=== PATIENT | female | born 1970 | race Caucasian/White ===

== ENCOUNTER 2019-01-24 08:39 | Emergency (ER) | payer OTHER ==
--- NOTE | 2019-01-24 09:36 | EDM.PDOC ---
ED HPI GENERAL MEDICAL PROBLEM - General Chief Complaint: Upper Extremity Injury/Pain Stated Complaint: LT WRIST INJURY Time Seen by Provider: 01/24/19 08:49 - History of Present Illness INITIAL COMMENTS - FREE TEXT/NARRATIVE: Patient is a 48 field female who presents with complaints of pain and swelling to her left wrist. She states that she fell about an hour prior to arrival and caught herself with her left hand. She denies any history of previous injuries to this extremity. Left Wrist Pain Score (Numeric/FACES): 6 - Related Data Allergies Allergy/AdvReac Type Severity Reaction Status Date / Time Sulfa (Sulfonamide Allergy Rash Verified 01/24/19 08:45 Antibiotics) Home Meds: Home Meds B12/Levomefolate Calcium/B-6 [Foltx Tablet] 1 tab PO DAILY 01/24/19 [History] Pantoprazole Sodium [Protonix] 4 mg PO DAILY 01/24/19 [History] Thyroid,Pork [[place] Thyroid] 9 mg PO DAILY 01/24/19 [History] Vitamin D3/Vitamin K2 (Mk4) [K2 Plus D3 Tablet] 1 tab PO DAILY 01/24/19 [History ] Past Medical History HEENT History: Reports: Impaired Vision Genitourinary History: Reports: Renal Calculus Endocrine/Metabolic History: Reports: Hypothyroidism - Past Surgical History HEENT Surgical History: Reports: LASIK, Tonsillectomy, Other (See Below) Other HEENT Surgeries/Procedures: Winsdom teeth extraction GI Surgical History: Reports: Bariatric Procedure Other GI Surgeries/Procedures: Gastric sleeve 2017 Female Surgical History: Reports: Hysterectomy, Lithotripsy/ESWL Social & Family History - Tobacco Use Smoking Status *Q: Never Smoker - Caffeine Use Caffeine Use: Reports: Energy Drinks - Recreational Drug Use Recreational Drug Use: No Review of Systems - Review of Systems Review Of Systems: See Below Constitutional: Reports: No Symptoms Eyes: Reports: No Symptoms Ears: Reports: No Symptoms Nose: Reports: No Symptoms Mouth/Throat: Reports: No Symptoms Respiratory: Reports: No Symptoms Cardiovascular: Reports: No Symptoms GI/Abdominal: Reports: No Symptoms Genitourinary: Reports: No Symptoms Musculoskeletal: Reports: Joint Pain (left wrist), Joint Swelling (left wrist) Skin: Reports: No Symptoms Neurological: Reports: No Symptoms. Denies: Dizziness, Headache, Syncope Psychiatric: Reports: No Symptoms ED EXAM, GENERAL - Physical Exam Exam: See Below Exam Limited By: No Limitations General Appearance: Alert, WD/WN, No Apparent Distress Head: Atraumatic, Normocephalic Respiratory/Chest: No Respiratory Distress, Lungs Clear, Normal Breath Sounds, No Accessory Muscle Use, Chest Non-Tender Cardiovascular: Normal Peripheral Pulses, Regular Rate, Rhythm, No Murmur Extremities: Joint Swelling (left wrist), Limited Range of Motion (left wrist) Neurological: Alert, Oriented, Normal Cognition Psychiatric: Normal Affect, Normal Mood Skin Exam: Warm, Dry, Intact, Normal Color, No Rash ED TRAUMA EXTREMITY PROCEDURES - Splinting Left Upper Extremity Splint Site: left wrist Pre-Procedure NV Status: Normal Post-Procedure NV Status: Normal Splint Material: Fiberglass Splint Design: Volar Applied & Form Fitted By: Provider Provider Post-Splint Application NV Check: NV Status Normal, Good Position Complications: No Course - Vital Signs Last Recorded V/S: Last Vital Signs Temp 98.4 F 01/24/19 08:47 Pulse 60 01/24/19 08:47 Resp 20 01/24/19 08:47 BP 136/92 H 01/24/19 08:47 Pulse Ox 99 01/24/19 08:47 - Orders/Labs/Meds Orders: Active Orders 24 hr Category Date Time Status Wrist Comp Min 3V Lt [CR] Stat Exams 01/24/19 08:54 Taken - Radiology Interpretation Free Text/Narrative:: x-ray of the left wrist does show a non-displaced fracture of the distal radius. A volar splint was applied. Patient was educated to ice through the splint and use Tylenol as needed for pain. patient is schedule follow-up appointment with orthopedics. She states that she does already have an appointment with Dr. Morelos for tomorrow. She will call to see if he would like her to reschedule for later in the week or early next week for cast placement. Departure - Departure Time of Disposition: 09:33 Disposition: Home, Self-Care 01 Condition: Good Clinical Impression: Fracture of radius Qualifiers: Encounter type: initial encounter Radius location: distal Fracture type: closed Fracture morphology: unspecified fracture morphology Laterality: left Qualified Code(s): S52.502A - Unspecified fracture of the lower end of left radius, initial encounter for closed fracture - Discharge Information *PRESCRIPTION DRUG MONITORING PROGRAM REVIEWED*: No *COPY OF PRESCRIPTION DRUG MONITORING REPORT IN PATIENT DIANA: No Instructions: Radial Fracture Referrals: Constanza Nuno MD [Primary Care Provider] - Inocente Morelos MD [Physician] - Forms: ED Department Discharge Additional Instructions: You were seen in the emergency Department today with pain and swelling to her left wrist. X-ray does show that there is a fracture of the distal radius. A splint was applied to her left wrist. This should remain intact until removed by orthopedics. You may ice through the splint. We also recommend that she elevate the extremity as much as possible. You may use Tylenol as needed for pain. Call and schedule an appointment with Dr. Morelos for approximately 1 week from today. If you should experience any new or worsening symptoms, please don't hesitate to return to the emergency department. - My Orders Last 24 Hours: My Active Orders 01/24/19 08:54 Wrist Comp Min 3V Lt [CR] Stat - Assessment/Plan Last 24 Hours: My Active Orders 01/24/19 08:54 Wrist Comp Min 3V Lt [CR] Stat
--- NOTE | 2019-01-24 10:53 | CR ---
Left wrist: Four views of the left wrist were obtained. Comparison: No prior wrist exam. Fracture is identified within the distal radius. Fracture shows transverse fracture lines as well as vertical fracture lines into the articular margin. No displacement is seen. No additional fracture or other bony abnormality is seen. Impression: 1. Nondisplaced radial fracture as noted above. Diagnostic code #3 This report was dictated in [place] Standard Time
== END 2019-01-24 09:50 | disposition home or self-care (01) ==
LOC: JD.ED 08:39
DX: S52.502A Unspecified fracture of the lower end of left radius, initial encounter for closed fracture (principal); E03.9 Hypothyroidism, unspecified; Z88.2 Allergy status to sulfonamides; W19.XXXA Unspecified fall, initial encounter
CPT/HCPCS: 29125; 73110-26-LT; 73110-LT; 99282; 99283-25

== ENCOUNTER 2019-07-20 15:52 | Emergency (ER) | payer OTHER ==
[2019-07-20] MEDS ORDERED: Dextrose 5%-0.9% NaCl 1,000 ML IV SCH (16:30)
[2019-07-20] MEDS ORDERED: HYDROmorphone 0.5 MG/0.5 ML Syringe IVPUSH ONE (16:32)
[2019-07-20] MEDS ORDERED: Metoclopramide 10 MG/2 ML SDV IVPUSH ONE (16:33)
--- NOTE | 2019-07-20 16:38 | EDM.PDOC ---
ED HPI GENERAL MEDICAL PROBLEM - General Chief Complaint: Abdominal Pain Stated Complaint: ABDOMINAL SURGERY Time Seen by Provider: 07/20/19 16:20 Source of Information: Reports: Patient History Limitations: Reports: No Limitations - History of Present Illness INITIAL COMMENTS - FREE TEXT/NARRATIVE: 49-year-old female resents to the ED with acute onset of severe epigastric right upper quadrant abdominal pain that radiates along the right costal margin to her right back infrascapular area. Associated nausea without vomiting. She has a complicated history of upper GI problems with chronic severe reflux disease requiring gastric surgery in April of this year. She had had previous lap band surgery and gastric sleeve procedures for weight loss in the past. Therefore she could not have a fundoplication. Did have some form of repair of the hiatal hernia. She actually had a gastric bypass on this occasion. She has had complications with the anastomosis between the small bowel or duodenum and the fundus of the stomach. She has had to have this area dilated x3 since the surgery was performed. Last occasion was 1 week ago. Apparently there is significant scar tissue at the and the stenotic site. Is therefore frequent vomiting of partially digested almost undigested food intermittently. She has early satiety and can eat much of the time. She states initially she had some diarrhea stools but for the most part now is formed up and normal. She does not appreciate any hematemesis. She is never had this type of pain associated with her gastric surgery. To her knowledge she has no gallstones. Last meal was approximate 1300 hrs. today. He had a quarter of a grilled cheese sandwich. Onset: Today Onset Date: 07/20/19 Onset Time: 15:15 Duration: Minutes: Location: Reports: Abdomen (For approximately an hour prior to being seen. Epigastric pain rating through straight through to her mid back also along the right costal margin to the infrascapular area typical of biliary colic.) Quality: Reports: Ache, Other (Deep aching pain with colicky component) Severity: Moderate Improves with: Reports: None Worsens with: Reports: None Context: Reports: Other (Continuous occurrence). Denies: Activity, Exercise, Lifting, Sick Contact Associated Symptoms: Reports: Loss of Appetite, Nausea/Vomiting (Nausea without vomiting), Shortness of Breath (Active shortness of breath as if she takes a deep breath the abdominal pain will worsen.) Treatments HEELER MACHINE: Reports: Other (see below) (None.) Abdominal Pain Score (Numeric/FACES): 7 - Related Data Allergies Allergy/AdvReac Type Severity Reaction Status Date / Time Sulfa (Sulfonamide Allergy Rash Verified 07/20/19 16:09 Antibiotics) Home Meds: Home Meds B12/Levomefolate Calcium/B-6 [Foltx Tablet] 1 tab PO DAILY 01/24/19 [History] Pantoprazole Sodium [Protonix] 4 mg PO DAILY 01/24/19 [History] Thyroid,Pork [[place] Thyroid] 9 mg PO DAILY 01/24/19 [History] Vitamin D3/Vitamin K2 (Mk4) [K2 Plus D3 Tablet] 1 tab PO DAILY 01/24/19 [History ] Hyoscyamine Sulfate [Levsin-Sl] 0.125 mg SL ASDIRECTED PRN #8 tab.subl 07/20/19 [Rx] Past Medical History HEENT History: Reports: Impaired Vision Genitourinary History: Reports: Renal Calculus Endocrine/Metabolic History: Reports: Hypothyroidism - Past Surgical History HEENT Surgical History: Reports: LASIK, Tonsillectomy, Other (See Below) Other HEENT Surgeries/Procedures: Winsdom teeth extraction GI Surgical History: Reports: Bariatric Procedure Other GI Surgeries/Procedures: Gastric sleeve 2017 Female Surgical History: Reports: Hysterectomy, Lithotripsy/ESWL Social & Family History - Tobacco Use Smoking Status *Q: Never Smoker - Caffeine Use Caffeine Use: Reports: Energy Drinks - Living Situation & Occupation Living situation: Reports: Occupation: Unemployed ED ROS GENERAL - Review of Systems Review Of Systems: See Below Constitutional: Reports: Decreased Appetite (Has early satiety since gastric bypass procedure was performed. She also is still sorting out by trial and error what foods she can tolerate and what she cannot.), Weight Loss. Denies: Fever, Chills, Malaise, Weakness, Fatigue HEENT: Reports: No Symptoms Respiratory: Reports: Shortness of Breath (Feels somewhat short of breath as deep breathing will make the abdominal pain worse.) Cardiovascular: Denies: Chest Pain, Blood Pressure Problem, Claudication, Dyspnea on Exertion, Edema, Lightheadedness, Orthopnea Endocrine: Reports: Fatigue GI/Abdominal: Reports: Abdominal Pain, Decreased Appetite (Marcia present illness), Nausea, Vomiting (Intermittent vomiting of usually partially digested to undigested foodSince having gastric bypass performed in April of this year) : Reports: No Symptoms Musculoskeletal: Reports: No Symptoms Skin: Reports: No Symptoms Neurological: Reports: No Symptoms Psychiatric: Reports: No Symptoms Hematologic/Lymphatic: Reports: No Symptoms Immunologic: Reports: No Symptoms ED EXAM, GI/ABD - Physical Exam Exam: See Below Exam Limited By: No Limitations General Appearance: Alert, WD/WN, Moderate Distress, Other (Temperature is 37.1 with a heart rate of 87. Respiratory to 16 with O2 sats 100% on room air. BP is 151/97.) Eyes: Bilateral: Normal Appearance (Scleral icterus or blepharal pallor.) Throat/Mouth: Normal Inspection, Normal Lips, Normal Oropharynx Head: Atraumatic, Normocephalic Neck: Normal Inspection, Supple, Non-Tender, Full Range of Motion. No: Lymphadenopathy (L), Lymphadenopathy (R) Respiratory/Chest: No Respiratory Distress, Lungs Clear, Normal Breath Sounds, No Accessory Muscle Use Cardiovascular: Normal Peripheral Pulses, Regular Rate, Rhythm, No Edema, No Gallop, No Murmur, No Rub GI/Abdominal Exam: Soft, No Organomegaly (Positive Alaniz sign), No Mass, Pelvis Stable, Tender (In the epigastrium mild marked tenderness inferior right costal margin with positive Alaniz sign suggesting biliary colic and gallbladder disease.), Abnormal Bowel Sounds (Sounds were fairly quiesced sent throughout the abdomen.), Other Back Exam: Normal Inspection, Full Range of Motion. No: CVA Tenderness (L), CVA Tenderness (R) Extremities: Normal Inspection, Normal Range of Motion, Non-Tender Neurological: Alert, Oriented, CN II-XII Intact, Normal Cognition Psychiatric: Anxious Skin Exam: Warm, Dry, Intact ([place] anxious), Normal Color, No Rash Course - Vital Signs Last Recorded V/S: Last Vital Signs Temp 37.1 C 07/20/19 16:04 Pulse 87 07/20/19 16:04 Resp 17 07/20/19 18:37 BP 132/80 07/20/19 18:37 Pulse Ox 99 07/20/19 18:37 - Orders/Labs/Meds Orders: Active Orders 24 hr Category Date Time Status Dextrose 5%-0.9% NaCl [Dextrose 5%-Normal Saline] 1,000 Med 07/20/19 16:30 Active ml IV ASDIRECTED Ketorolac [Toradol] Med 07/20/19 16:45 Active 30 mg IVPUSH ONETIME Medication Orders Dextrose/Sodium Chloride (Dextrose 5%-Normal Saline) 1,000 mls @ 250 mls/hr IV ASDIRECTED MARYANN Last Admin: 07/20/19 16:54 Dose: 250 mls/hr Ketorolac Tromethamine (Toradol) 30 mg IVPUSH ONETIME MARYANN Last Admin: 07/20/19 17:15 Dose: 30 mg Labs: Laboratory Tests 07/20/19 07/20/19 Range/Units 16:54 16:54 WBC 6.58 (3.98-10.04) K/mm3 RBC 4.79 (3.98-5.22) M/mm3 Hgb 13.3 (11.2-15.7) gm/dl Hct 40.8 (34.1-44.9) % MCV 85.2 (79.4-94.8) fl MCH 27.8 (25.6-32.2) pg MCHC 32.6 (32.2-35.5) g/dl RDW Std Deviation 50.0 H (36.4-46.3) fL Plt Count 231 (182-369) K/mm3 MPV 11.4 (9.4-12.3) fl Neut % (Auto) 53.1 (34.0-71.1) % Lymph % (Auto) 36.0 (19.3-51.7) % [place] % (Auto) 8.1 (4.7-12.5) % Eos % (Auto) 2.1 (0.7-5.8) Baso % (Auto) 0.5 (0.1-1.2) % Neut # (Auto) 3.50 (1.56-6.13) K/mm3 Lymph # (Auto) 2.37 (1.18-3.74) K/mm3 [place] # (Auto) 0.53 H (0.24-0.36) K/mm3 Eos # (Auto) 0.14 (0.04-0.36) K/mm3 Baso # (Auto) 0.03 (0.01-0.08) K/mm3 Sodium 141 (136-145) mEq/L Potassium 3.6 (3.5-5.1) mEq/L Chloride 107 (98-107) mEq/L Carbon Dioxide 26 (21-32) mEq/L Anion Gap 11.6 (5-15) BUN 10 (7-18) mg/dL Creatinine 0.8 (0.55-1.02) mg/dL Est Cr Clr Drug Dosing 87.70 mL/min Estimated GFR (MDRD) > 60 (>60) mL/min BUN/Creatinine Ratio 12.5 L (14-18) Glucose 94 (74-106) mg/dL Calcium 9.1 (8.5-10.1) mg/dL Total Bilirubin 0.4 (0.2-1.0) mg/dL AST 98 H (15-37) U/L ALT 69 H (14-59) U/L Alkaline Phosphatase 140 H (46-116) U/L C-Reactive Protein 0.3 (<1.0) mg/dL Total Protein 7.7 (6.4-8.2) g/dl Albumin 3.8 (3.4-5.0) g/dl Globulin 3.9 gm/dL Albumin/Globulin Ratio 1.0 (1-2) Amylase 38 (25-115) U/L Meds: Medications Generic Name Dose Route Start Last Admin Trade Name Freq PRN Reason Stop Dose Admin Dextrose/Sodium Chloride 1,000 mls @ 250 mls/hr 07/20/19 16:30 07/20/19 16:54 Dextrose 5%-Normal Saline IV 250 mls/hr ASDIRECTED MARYANN Administration Ketorolac Tromethamine 30 mg 07/20/19 16:45 07/20/19 17:15 Toradol IVPUSH 30 mg ONETIME MARYANN Administration Discontinued Medications Generic Name Dose Route Start Last Admin Trade Name Freq PRN Reason Stop Dose Admin Hydromorphone HCl 0.5 mg 07/20/19 16:32 07/20/19 17:14 Dilaudid IVPUSH 07/20/19 16:33 0.5 mg ONETIME ONE Administration Hyoscyamine 0.125 mg 07/20/19 16:40 07/20/19 16:39 Hyomax-Sl SL 07/20/19 16:41 0.125 mg ONETIME ONE Administration Metoclopramide HCl 7.5 mg 07/20/19 16:33 07/20/19 17:10 Reglan IVPUSH 07/20/19 16:34 7.5 mg ONETIME ONE Administration - Radiology Interpretation Free Text/Narrative:: 49-year-old female presents to the ED with acute onset of epigastric right upper quadrant abdominal pain that radiates along the costal margin to the infrascapular area on the right side. Associated nausea without vomiting. Patient has a complicated history of recurrent surgeries on her stomach for weight loss procedures. She has had previous lap band procedure and gastric sleeve performed. More recently she had a gastric bypass performed and repair of hiatal hernia due to severe gastroesophageal reflux disease in April of this year. Since then she has been able to retain only small quantities of food at a time and will often have spontaneous vomiting due to gastroparesis of partially undigested or undigested food. 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 Last dilatation was performed [address] Baugh her surgeon.. Plan clinically she is suffering from gallbladder disease with acute biliary colic. She last ate at 1300 hrs. today therefore she is out of the window for ultrasound at this time. Plan Levsin 0.125 mg now and repeat in 7 to 10 minutes. IV D5 normal saline at 250 mils per hour. Given Dilaudid 0.5 mg IV with Reglan 7.5 mg IV and Toradol 30 mg IV. 1 view of the abdomen. She will have routine labs including an amylase and CMP. Enzymes are unlikely to be elevated as it is only 45 minutes to an hour since she developed the pain. - Re-Assessments/Exams Free Text/Narrative Re-Assessment/Exam: 07/20/19 17:02 reports really good relief of the abdominal pain after the Levsin tablets x2. She was still be given the low dose of Dilaudid for prolonged pain relief as the Levsin will only last for short period of time. 07/20/19 17:25 Hematology is back. White count is normal at 6.58. Auto differential is 53.1%. Hemoglobin is 13.3 with hematocrit of 40.8. Platelet count is normal at 231,000. 07/20/19 17:56 Chemistry reveals a normal sodium at 141 and potassium of 3.6. Chloride is 107 with a bicarb of 26. Anion gap is normal at 11.6. BUN is 10 with a creatinine of 0.8. GFR is greater than 60. Glucose is 94. Calcium is 9.1. Bilirubin is normal at 0.4. Mild elevation of the AST at 98. ALT mildly elevated at 69. Alkaline phosphatase 140. Also slightly elevated. Cannot rule out early biliary tree obstruction at this time. Total protein is 7.7 with albumin fraction of 3.8. Amylase is normal at 38. Departure - Departure Time of Disposition: 17:56 Disposition: Home, Self-Care 01 Condition: Fair Clinical Impression: Biliary colic - Discharge Information *PRESCRIPTION DRUG MONITORING PROGRAM REVIEWED*: Not Applicable *COPY OF PRESCRIPTION DRUG MONITORING REPORT IN PATIENT DIANA: Not Applicable Prescriptions: Hyoscyamine Sulfate [Levsin-Sl] 0.125 mg SL ASDIRECTED PRN #8 tab.subl PRN Reason: Biliary colic Instructions: Biliary Colic, Adult, Abdominal Pain, Adult, [id number], Gallbladder Eating Plan Referrals: Constanza Nuno MD [Primary Care Provider] - Forms: ED Department Discharge Additional Instructions: Evaluation in the emergency room today in regards to acute onset of significant pain in the epigastrium and right upper quadrant of the abdomen. Examination revealed marked tenderness along the undersurface of your right ribs or right costal margin that was made worse by deep breathing. The signs and symptoms are compatible with acute biliary colic or gallbladder attack. This is quite common to develop gallstones after having stomach surgery. Bedside ultrasound today does reveal several small stones in the bottom of the gallbladder. The gallbladder was not really well visualized at this time. You were treated with intravenous pain medicine Dilaudid 0.5 mg with Toradol 30 mg and antinausea medicine Reglan. Levsin 0.125 mg tablets x2 by mouth relieve most of your pain before the intravenous medication was given. You will need an ultrasound as an outpatient and I will put an order into radiology for them to call you tomorrow with a date and time to come in and have this done. This is done without eating after midnight the day of the test. I will send you home with a prescription for Levsin 0.125 mg tablets to have on hand in case she developed similar type pain. Take 1 right away and if still having some discomfort in 5 to 10 minutes take a second tablet. If this fails to relieve your pain or it comes back you will have to return to the emergency room. If the abdominal pain recurs anytime within the next 12 hours you may try the Levsin at home, where if the pain persists please return to the emergency room. Sepsis Event Note - Evaluation Sepsis Screening Result: No Definite Risk - Focused Exam Vital Signs: Vital Signs Temp Pulse Resp BP Pulse Ox 07/20/19 18:37 17 132/80 99 07/20/19 16:04 37.1 C 87 16 151/97 H 100 Date Exam was Performed: 07/20/19 Time Exam was Performed: 19:10 - My Orders Last 24 Hours: My Active Orders 07/20/19 16:30 Dextrose 5%-0.9% NaCl [Dextrose 5%-Normal Saline] 1,000 ml IV ASDIRECTED 07/20/19 16:45 Ketorolac [Toradol] 30 mg IVPUSH ONETIME - Assessment/Plan Last 24 Hours: My Active Orders 07/20/19 16:30 Dextrose 5%-0.9% NaCl [Dextrose 5%-Normal Saline] 1,000 ml IV ASDIRECTED 07/20/19 16:45 Ketorolac [Toradol] 30 mg IVPUSH ONETIME
[2019-07-20] MEDS ORDERED: Hyoscyamine 0.125 MG Tab.SL SL ONE (16:40)
[2019-07-20] MEDS ORDERED: Ketorolac 30 MG/ML SDV IVPUSH SCH (16:45)
--- NOTE | 2019-07-20 17:21 | CR ---
Abdomen: Supine view of the abdomen was obtained. Surgical clips as well as surgical anastomotic sutures are seen within the left upper abdomen. Bowel gas pattern appears within normal limits. Bony structures are unremarkable. No soft tissue abnormality is seen. No abnormal calcifications are appreciated. Impression: 1. Prior abdominal surgery. 2. Nothing acute is seen on supine abdominal x-ray. Diagnostic code #2 This report was dictated in MDT
== END 2019-07-20 18:37 | disposition home or self-care (01) ==
LOC: JD.ED 15:52
DX: K80.50 Calculus of bile duct without cholangitis or cholecystitis without obstruction (principal); R11.2 Nausea with vomiting, unspecified; E03.9 Hypothyroidism, unspecified; Z88.2 Allergy status to sulfonamides; Z79.899 Other long term (current) drug therapy; Z90.710 Acquired absence of both cervix and uterus; Z98.890 Other specified postprocedural states
CPT/HCPCS: 36415; 74018; 80053; 82150; 85025; 86140; 96361; 96374; 96375; 99284; A9270; J1170; J1885; J2765; J7042

== ENCOUNTER 2021-01-28 15:40 | Emergency (ER) | payer OTHER ==
[2021-01-28] MEDS ORDERED: Sodium Chloride 0.9% 1,000 ML IV STA (17:43)
[2021-01-28] MEDS ORDERED: HYDROmorphone 0.5 MG/0.5 ML Syringe IVPUSH ONE (17:43)
[2021-01-28] MEDS ORDERED: Sodium Chloride 0.9% 10 ML Syringe FLUSH PRN (17:43)
[2021-01-28] MEDS ORDERED: Ondansetron 4 MG/2 ML SDV IVPUSH ONE (17:43)
--- NOTE | 2021-01-28 18:47 | US ---
Limited abdominal ultrasound: Multiple real-time images of the upper right abdomen were obtained. Comparison: Prior right upper quadrant abdominal ultrasound of 07/22/19. Findings: Liver is echogenic compatible with fatty infiltration. Slight focal fatty sparing next to the gallbladder is seen. Gallbladder shows no shadowing gallstones. There is either minimal sludge or gallbladder polyps being seen. No gallbladder wall thickening or biliary duct dilatation is seen. Complete pancreas is not seen. Visualized portions of the pancreas showed nothing acute. Inferior vena cava is patent. Main portal vein shows normal hepatopedal flow. Right kidney shows no hydronephrosis or mass. Right kidney has a length of 10.7 cm. Impression: 1. Fatty infiltration within the liver. 2. Small area of focal fatty sparing next to the gallbladder. 3. Gallbladder polyps versus sludge within the gallbladder. No shadowing gallstones, gallbladder wall thickening or biliary duct dilatation is seen. 4. Other portions of the right upper quadrant abdominal ultrasound appear unremarkable. Diagnostic code #2
--- NOTE | 2021-01-28 19:00 | EDM.PDOC ---
ED HPI GENERAL MEDICAL PROBLEM - General Chief Complaint: Abdominal Pain Stated Complaint: UPPER ABDOMINAL BACK PAIN Time Seen by Provider: 01/28/21 17:38 Source of Information: Reports: Patient, RN Notes Reviewed History Limitations: Reports: No Limitations - History of Present Illness INITIAL COMMENTS - FREE TEXT/NARRATIVE: Patient is a 50-year-old female presenting to the emergency department with complaints of right upper quadrant abdominal pain. She reports she has had this pain off and on for the last week. I was occurs approximate 30 minutes after eating. This afternoon she ate beef taquitos and approximately 30 minutes after eating developed sharp stabbing pain in the right upper quadrant. She did vomit x1, ever states she believes it was more related to pain than nausea. She has a history of bariatric surgeries x3. States that she has had "all 3 surgeries" at one time or another. She denies any fever, chills, or diarrhea. She did have an ultrasound on her gallbladder approximately 1 year ago as she was having similar symptoms and no abnormalities were found. Upper Abdomen Pain Score (Numeric/FACES): 4 - Related Data Allergies Allergy/AdvReac Type Severity Reaction Status Date / Time Sulfa (Sulfonamide Allergy Rash Verified 01/28/21 15:56 Antibiotics) Home Meds: Home Meds B12/Levomefolate Calcium/B-6 [Foltx Tablet] 1 tab PO DAILY 01/24/19 [History] Pantoprazole Sodium [Protonix] 40 mg PO DAILY 01/24/19 [History] Thyroid,Pork [[place] Thyroid] 90 mg PO DAILY 01/24/19 [History] Hyoscyamine [Hyomax-SL] 0.125 mg SL ASDIRECTED #10 tab.sl 01/28/21 [Rx] Losartan [Cozaar] 50 mg PO DAILY 01/28/21 [History] Ondansetron [Zofran ODT] 4 mg PO Q6H PRN #10 tab.dis 01/28/21 [Rx] buPROPion HCL [Wellbutrin Xl] 150 mg PO DAILY 01/28/21 [History] Past Medical History HEENT History: Reports: Impaired Vision Genitourinary History: Reports: Renal Calculus 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: Reports: Endometriosis, Psychiatric History: Reports: Anxiety Endocrine/Metabolic History: Reports: Hypothyroidism - Infectious Disease History Infectious Disease History: Reports: Chicken Pox, Influenza, Novel Coronavirus - Past Surgical History HEENT Surgical History: Reports: LASIK, Tonsillectomy, Other (See Below) Other HEENT Surgeries/Procedures: [place] teeth extraction GI Surgical History: Reports: Bariatric Procedure Other GI Surgeries/Procedures: Gastric sleeve 2017 Female Surgical History: Reports: Hysterectomy, Lithotripsy/ESWL Social & Family History - Tobacco Use Tobacco Use Status *Q: Former Tobacco User Used Tobacco, but Quit: No - Caffeine Use Caffeine Use: Reports: Energy Drinks - Recreational Drug Use Recreational Drug Use: No - Living Situation & Occupation Living situation: Reports: Occupation: Unemployed ED ROS GENERAL - Review of Systems Review Of Systems: Comprehensive ROS is negative, except as noted in HPI. ED EXAM, GI/ABD - Physical Exam Exam: See Below Exam Limited By: No Limitations General Appearance: Alert, WD/WN, No Apparent Distress Respiratory/Chest: No Respiratory Distress, Lungs Clear, Normal Breath Sounds, No Accessory Muscle Use, Chest Non-Tender Cardiovascular: Normal Peripheral Pulses, Regular Rate, Rhythm, No Edema, No Gallop, No JVD, No Murmur, No Rub GI/Abdominal Exam: Normal Bowel Sounds, Soft, No Organomegaly, No Distention, No Abnormal Bruit, No Mass, Pelvis Stable, Tender (Right upper quadrant. Positive Alaniz sign). No: Guarding, Rigid Neurological: Alert, Oriented, Normal Cognition, Normal Gait, No Motor/Sensory Deficits Psychiatric: Normal Affect, Normal Mood Skin Exam: Warm, Dry, Intact, Normal Color, No Rash Course - Vital Signs Last Recorded V/S: Last Vital Signs Temp 98.7 F 01/28/21 15:50 Pulse 88 01/28/21 15:50 Resp 18 01/28/21 15:50 BP 142/93 H 01/28/21 15:50 Pulse Ox 99 01/28/21 15:50 - Orders/Labs/Meds Labs: Laboratory Tests 01/28/21 01/28/21 01/28/21 Range/Units 17:53 17:53 17:53 WBC 9.90 (3.98-10.04) K/mm3 RBC 4.63 (3.98-5.22) M/mm3 Hgb 13.3 (11.2-15.7) gm/dl Hct 40.7 (34.1-44.9) % MCV 87.9 (79.4-94.8) fl MCH 28.7 (25.6-32.2) pg MCHC 32.7 (32.2-35.5) g/dl RDW Std Deviation 44.8 (36.4-46.3) fL Plt Count 262 (182-369) K/mm3 MPV 10.4 (9.4-12.3) fl Neut % (Auto) 75.6 H (34.0-71.1) % Lymph % (Auto) 15.2 L (19.3-51.7) % [place] % (Auto) 8.1 (4.7-12.5) % Eos % (Auto) 0.8 (0.7-5.8) Baso % (Auto) 0.1 (0.1-1.2) % Neut # (Auto) 7.49 H (1.56-6.13) K/mm3 Lymph # (Auto) 1.50 (1.18-3.74) K/mm3 [place] # (Auto) 0.80 H (0.24-0.36) K/mm3 Eos # (Auto) 0.08 (0.04-0.36) K/mm3 Baso # (Auto) 0.01 (0.01-0.08) K/mm3 Sodium 142 (136-145) mEq/L Potassium 4.5 (3.5-5.1) mEq/L Chloride 106 (98-107) mEq/L Carbon Dioxide 27 (21-32) mEq/L Anion Gap 13.5 (5-15) BUN 20 H (7-18) mg/dL Creatinine 0.9 (0.55-1.02) mg/dL Est Cr Clr Drug Dosing 77.11 mL/min Estimated GFR (MDRD) > 60 (>60) mL/min BUN/Creatinine Ratio 22.2 H (14-18) Glucose 103 H (70-99) mg/dL Calcium 9.0 (8.5-10.1) mg/dL Total Bilirubin 0.5 (0.2-1.0) mg/dL GGT 122 H (5-55) U/L AST 292 H (15-37) U/L ALT 150 H (14-59) U/L Alkaline Phosphatase 215 H (46-116) U/L C-Reactive Protein < 0.2 (<1.0) mg/dL Total Protein 7.7 (6.4-8.2) g/dl Albumin 4.0 (3.4-5.0) g/dl Globulin 3.7 gm/dL Albumin/Globulin Ratio 1.1 (1-2) Lipase 71 L (73-393) U/L HCG, Qual Negative (NEGATIVE) Meds: Medications Discontinued Medications Generic Name Dose Route Start Last Admin Trade Name Freq PRN Reason Stop Dose Admin Hydromorphone HCl 0.5 mg 01/28/21 17:43 01/28/21 18:02 Hydromorphone 0.5 Mg/0.5 Ml Syringe IVPUSH 01/28/21 17:44 0.5 mg ONETIME ONE Administration Sodium Chloride 1,000 mls @ 150 mls/hr 01/28/21 17:43 01/28/21 18:01 Normal Saline IV 01/29/21 00:22 150 mls/hr NOW STA Administration Ondansetron HCl 4 mg 01/28/21 17:43 01/28/21 18:01 Ondansetron 4 Mg/2 Ml Sdv IVPUSH 01/28/21 17:44 4 mg ONETIME ONE Administration Sodium Chloride 10 ml 01/28/21 17:43 01/28/21 18:06 Sodium Chloride 0.9% 10 Ml Syringe FLUSH 10 ml ASDIRECTED PRN Administration Keep Vein Open - Re-Assessments/Exams Free Text/Narrative Re-Assessment/Exam: Patient is a 50-year-old female presenting to the emergency department for evaluation of right upper quadrant abdominal pain. Has been occurring off and on for 1 week, proximally 30 minutes after each time she eats. Denies nausea but did vomit one time today. On exam, she has distinct and localized right upper quadrant abdominal tenderness. Positive Alaniz sign. Presentation is concerning for gallbladder pathology. I have ordered blood work, urinalysis, and right upper quadrant ultrasound. I will give her IV fluids of normal saline at 150, Zofran for nausea, Dilaudid for pain. 01/28/21 19:00 Hematology significant for GGT elevated at 122, AST 292, ALT 150, alkaline phosphatase 215. Lipase is low at 71. But WBCs are normal. Abdominal ultrasound impression as follows: 1. Fatty infiltration of the liver. 2. Small area of focal fatty sparing next to the gallbladder. 3. Gallbladder polyps versus sludge within the gallbladder. No shadowing gallstones, gallbladder wall thickening, or biliary duct dilatation is seen. 4. Other portions the right upper quadrant abdominal ultrasound appear unremarkable. Patient is feeling much better after the medications given. Case was discussed with general surgeon, Dr. Aquino. He recommends that she follow-up with him in clinic on Thursday and they will plan to schedule for cholecystectomy. She is in agreement with this plan. I will discharge her with a prescription for Levsin. Recommend bland diet and to avoid greasy foods. Discussed return precautions. Discharge instructions as documented.. Departure - Departure Time of Disposition: 19:00 Disposition: Home, Self-Care 01 Condition: Good Clinical Impression: Biliary colic - Discharge Information *PRESCRIPTION DRUG MONITORING PROGRAM REVIEWED*: No *COPY OF PRESCRIPTION DRUG MONITORING REPORT IN PATIENT DIANA: No Prescriptions: Hyoscyamine [Hyomax-SL] 0.125 mg SL ASDIRECTED #10 tab.sl Ondansetron [Zofran ODT] 4 mg PO Q6H PRN #10 tab.dis PRN Reason: Nausea/Vomiting Instructions: Biliary Colic, Adult Referrals: Constanza Nuno MD [Primary Care Provider] - Forms: ED Department Discharge Additional Instructions: [place] diet for the next few days. Avoid greasy foods. For recurrence of right upper quadrant pain, use the hyoscyamine as prescribed. Contact Dr. Aquino's office tomorrow to set up follow-up appointment for Thursday. The number to schedule with him at [phone]. If you should experience recurrence of pain that you are unable to manage at home or any other new or worsening symptoms, please do not hesitate to return to the emergency department for reevaluation.
== END 2021-01-28 19:15 | disposition home or self-care (01) ==
LOC: JD.ED 15:40
DX: K80.50 Calculus of bile duct without cholangitis or cholecystitis without obstruction (principal); Z88.2 Allergy status to sulfonamides
CPT/HCPCS: 36415; 76705; 80053; 82977; 83690; 84703; 85025; 86140; 96374; 96375; 99284; J1170; J2405; J7030

== ENCOUNTER 2021-02-07 12:41 | Day surgery (SDC) | payer OTHER ==
--- NOTE | 2021-02-07 12:21 | PCM.PREANE ---
Preanesthetic Assessment - Procedure Proposed Procedure: lap Anisa - Anesthesia/Transfusion/Family Hx Anesthesia History: Prior Anesthesia Without Reaction Family History of Anesthesia Reaction: No Transfusion History: No Prior Transfusion(s) Intubation History: Unknown - Review of Systems General: No Symptoms Pulmonary: No Symptoms Cardiovascular: No Symptoms Gastrointestinal: No Symptoms Neurological: Headache Other: Reports: Thyroid Problems (hypothyroidism), Neck Pain, Anxiety - Physical Assessment NPO Status Date: 02/06/21 NPO Status Time: 19:00 Vital Signs: 140/86 HR 58 100% RR 20 97.9 Height: 1.73 m Weight: 80.2 kg ASA Class: 2 Mental Status: Alert & Oriented x3 Airway Class: Mallampati = 1 Dentition: Reports: Normal Dentition, Onida(s), Caries Thyro-Mental Finger Breadths: 3 Mouth Opening Finger Breadths: 3 ROM/Head Extension: Full Lungs: Clear to Auscultation, Normal Respiratory Effort Cardiovascular: Regular Rate, Regular Rhythm, No Murmurs - Lab Values: Labs reviewed from recent ER visit and okay to proceed - Allergies Allergies/Adverse Reactions: Allergies Allergy/AdvReac Type Severity Reaction Status Date / Time Sulfa (Sulfonamide Allergy Rash Verified 01/28/21 15:56 Antibiotics) - Acknowledgements Anesthesia Type Planned: General Anesthesia Pt an Appropriate Candidate for the Planned Anesthesia: Yes Alternatives and Risks of Anesthesia Discussed w Pt/Guardian: Yes Pt/Guardian Understands and Agrees with Anesthesia Plan: Yes PreAnesthesia Questionnaire HEENT History: Reports: Allergic Rhinitis, Impaired Vision Cardiovascular History: Reports: High Cholesterol, Hypertension Respiratory History: Reports: None Gastrointestinal History: Reports: GERD, Other (See Below) (elevated liver enzymes, gastric bypass) Genitourinary History: Reports: Renal Calculus 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: Reports: Endometriosis, Musculoskeletal History: Reports: None Neurological History: Reports: None Psychiatric History: Reports: Anxiety, Depression, Other (See Below) (insomnia) Endocrine/Metabolic History: Reports: Hypothyroidism, Other (See Below) Other Endocrine/Metabolic History: Hx hypoglycemia Hematologic History: Reports: None Immunologic History: Reports: None Oncologic (Cancer) History: Reports: None Dermatologic History: Reports: Other (See Below) (actinic keratosis) - Infectious Disease History Infectious Disease History: Reports: Chicken Pox, Influenza, Novel Coronavirus - Past Surgical History HEENT Surgical History: Reports: LASIK, Tonsillectomy, Other (See Below) Other HEENT Surgeries/Procedures: [place] teeth extraction GI Surgical History: Reports: Bariatric Procedure, Hernia Repair/Other (hiatal) Other GI Surgeries/Procedures: hx of lap then gastrectomy sleeve then rou [id number]-ov-r-gastric bypass, last surgery was 2019 Female Surgical History: Reports: Hysterectomy, Lithotripsy/ESWL Musculoskeletal Surgical History: Reports: Other (See Below) (foot surgery, leg surgery) - SUBSTANCE USE Tobacco Use Status *Q: Never Tobacco User Tobacco Use Within Last Twelve Months: No Second Hand Smoke Exposure: No Days Per Week of Alcohol Use: 0 Number of Drinks Per Day: 0 Total Drinks Per Week: 0 Recreational Drug Use History: No - HOME MEDS Home Medications: Home Meds B12/Levomefolate Calcium/B-6 [Foltx Tablet] 1 tab PO DAILY 01/24/19 [History] Pantoprazole Sodium [Protonix] 40 mg PO DAILY 01/24/19 [History] Thyroid,Pork [[place] Thyroid] 90 mg PO DAILY 01/24/19 [History] Hyoscyamine [Hyomax-SL] 0.125 mg SL ASDIRECTED #10 tab.sl 01/28/21 [Rx] Losartan [Cozaar] 50 mg PO DAILY 01/28/21 [History] Ondansetron [Zofran ODT] 4 mg PO Q6H PRN #10 tab.dis 01/28/21 [Rx] buPROPion HCL [Wellbutrin Xl] 150 mg PO DAILY 01/28/21 [History] - CURRENT (IN HOUSE) MEDS Current Meds: Current Medications Lactated Ringer's (Ringers, Lactated) 1,000 mls @ 125 mls/hr IV ASDIRECTED MARYANN Stop: 02/07/21 23:00 Lidocaine/Sodium Bicarbonate (Lidocaine 1%/Sod Bicarbonate In Ns 8.4% 1 Ml Syringe) 0.25 ml IDERM ONETIME PRN PRN Reason: Prior to IV Start Stop: 02/07/21 18:00 Sodium Chloride (Sodium Chloride 0.9% 10 Ml Syringe) 10 ml FLUSH ASDIRECTED PRN PRN Reason: Keep Vein Open Stop: 02/07/21 18:00 Discontinued Medications Fentanyl (Fentanyl 250 Mcg/5 Ml Sdv) Confirm Administered Dose 250 mcg .ROUTE .STK-MED ONE Stop: 02/07/21 12:03 Lidocaine HCl (Xylocaine-Mpf 1%) Confirm Administered Dose 4 mls @ as directed .ROUTE .STK-MED ONE Stop: 02/07/21 12:00 Midazolam HCl (Midazolam 1 Mg/Ml 2 Ml Sdv) Confirm Administered Dose 2 mg .ROUTE .STK-MED ONE Stop: 02/07/21 12:04 Propofol (Propofol 200 Mg/20 Ml Sdv) Confirm Administered Dose 200 mg .ROUTE .STK-MED ONE Stop: 02/07/21 12:00 Rocuronium [place] (Rocuronium 50 Mg/5 Ml Vial) Confirm Administered Dose 50 mg .ROUTE .STK-MED ONE Stop: 02/07/21 12:00
[~2021-02-07 12:41] MED LIST: Lactated Ringers 1,000 ML IV SCH; Lidocaine 1% 4 ML ONE; Lidocaine 1%/Sod Bicarbonate in NS 8.4% 1 ML Syringe IDERM PRN; Midazolam 1 MG/ML 2 ML SDV ONE; Propofol 200 MG/20 ML SDV ONE; Rocuronium 50 MG/5 ML Vial ONE; Scopolamine 1.5 MG Transdermal Patch TOP ONE; Sodium Chloride 0.9% 10 ML Syringe FLUSH PRN; fentaNYL 250 MCG/5 ML SDV ONE
[2021-02-07] MEDS ORDERED: Bupivacaine 0.5% 30 ML SDV ONE (12:54)
[2021-02-07] MEDS ORDERED: Dexamethasone 4 MG/ML 5 ML MDV ONE (14:35)
[2021-02-07] MEDS ORDERED: ceFAZolin 1 GM Vial ONE (14:36)
[2021-02-07] MEDS ORDERED: HYDROmorphone 0.5 MG/0.5 ML Syringe ONE ×2 (14:46→14:54)
[2021-02-07] MEDS ORDERED: Lactated Ringers 1,000 ML ONE (14:55)
[2021-02-07] MEDS ORDERED: Scopolamine 1.5 MG Transdermal Patch TOP ONE (15:00)
[2021-02-07] MEDS ORDERED: HYDROmorphone 0.5 MG/0.5 ML Syringe IVPUSH PRN (15:08)
[2021-02-07] MEDS ORDERED: fentaNYL 100 MCG/2 ML SDV IVPUSH PRN (15:08)
[2021-02-07] MEDS ORDERED: Ondansetron 4 MG/2 ML SDV IVPUSH PRN (15:08)
[2021-02-07] MEDS ORDERED: Ondansetron 4 MG/2 ML SDV ONE (15:12)
[2021-02-07] MEDS ORDERED: Ketorolac 30 MG/ML SDV ONE (15:12)
[2021-02-07] MEDS ORDERED: Propofol 200 MG/20 ML SDV ONE (15:32)
--- NOTE | 2021-02-07 15:41 | PCM.PRNOTE ---
- Free Text/Narrative Note: Date: 02/07/2021 Operation: laparoscopic cholecystectomy Indication: symptomatic cholelithiasis Surgeon: Ubaldo Aquino MD Findings: normal anatomy, mild chronic inflammatory changes, critical view of safety obtained. Prior gastric bypass evident. Detailed Report: The patient was taken to the operating room and placed on the table in supine position. Timeout was performed and general endotracheal anesthesia was initiated. The abdomen was prepped and draped in usual sterile fashion. A Veress needle was placed to the left upper quadrant in order to establish pneumoperitoneum. Once pressure reached 15 mmHg, air was aspirated with a needle and syringe just inferior to the umbilicus. A 5 mm bladed trocar was inserted at this site and a 5 mm 30 degree laparoscope inserted into the abdomen. There appeared to be no inadvertent injury from Veress needle placement and the needle was removed under laparoscopic visualization. Additional ports were placed under laparoscopic visualization, one at the right lateral abdomen for the laundry assistant, one at the right upper quadrant for the surgeon's left hand, and a 12 mm bladed trocar inserted at the subxiphoid site. The fundus of the gallbladder was grasped and retracted anteriorly and cephalad. The infundibulum of the gallbladder was unclear site. There was minor if any inflammatory changes of the gallbladder. Visceral peritoneum was taken off the gallbladder at the level of the infundibulum laterally and medially. The cystic duct and cystic artery were carefully dissected and skeletonized. A critical view of safety was obtained. Hemolock clips were placed on the structures prior to transection with laparoscopic pb; 2 clips were left on the stay side of the cystic duct. The hook monopolar energy device was used to take the gallbladder off the liver. There was no hemorrhage or leakage of bile during this portion of the procedure. The gallbladder was placed in an Endo Catch bag and removed through the subxiphoid site. The dissection field was clean and dry. The larger port site was closed at the level of fascia with 0 Vicryl using laparoscopic suture passer. Lateral ports were removed under laparoscopic visualization and no bleeding was noted. Pneumoperitoneum was released and the umbilical port was removed. All incisions were closed at the level of the skin with running subcuticular Vicryl suture and dressed with Dermabond. A total of 30 cc 0.5% Marcaine was used for local anesthetic throughout the case. The pat ient tolerated the procedure well.
--- NOTE | 2021-02-07 15:46 | PCM.POSTAN ---
POST ANESTHESIA ASSESSMENT - MENTAL STATUS Mental Status: Alert, Oriented - RESPIRATORY Respiratory Status: Respiratory Rate WNL, Airway Patent, O2 Saturation Stable - CARDIOVASCULAR CV Status: Pulse Rate WNL, Blood Pressure Stable - GASTROINTESTINAL GI Status: No Symptoms - PAIN Pain Score: 0 - POST OP HYDRATION Hydration Status: Adequate & Stable
[2021-02-07] MEDS ORDERED: diphenhydrAMINE 50 MG/ML SDV IVPUSH ONE (16:00)
--- NOTE | 2021-02-07 16:29 | PCM48HPAN ---
Post Anesthesia Note - EVALUATION WITHIN 48HRS OF ANESTHETIC Vital Signs in Normal Range: Yes Patient Participated in Evaluation: Yes Respiratory Function Stable: Yes Airway Patent: Yes Cardiovascular Function Stable: Yes Hydration Status Stable: Yes Pain Control Satisfactory: Yes Nausea and Vomiting Control Satisfactory: Yes Mental Status Recovered: Yes Vital Signs: Last Vital Signs Temp 97.7 F 02/07/21 15:37 Pulse 58 L 02/07/21 10:45 Resp 12 02/07/21 16:15 BP 126/84 02/07/21 16:15 Pulse Ox 100 02/07/21 16:15
[2021-02-07] MEDS ORDERED: oxyCODONE 5 MG Tab PO ONE (17:00)
== END 2021-02-07 17:45 | disposition home or self-care (01) ==
LOC: JD.SDS 12:41
PROVIDERS: ATTEND Surgery
DX: K80.10 Calculus of gallbladder with chronic cholecystitis without obstruction (principal); I10 Essential (primary) hypertension; G47.30 Sleep apnea, unspecified; E55.9 Vitamin D deficiency, unspecified; E78.00 Pure hypercholesterolemia, unspecified; K21.9 Gastro-esophageal reflux disease without esophagitis; Z88.5 Allergy status to narcotic agent; Z88.2 Allergy status to sulfonamides; Z79.899 Other long term (current) drug therapy; Z98.890 Other specified postprocedural states
CPT/HCPCS: 47562; A9270; J0690; J1100; J1170; J1200; J1885; J2250; J2405; J2704; J3010; J3490; J7120; 00790

== ENCOUNTER 2021-11-18 22:14 | Emergency (ER) | payer OTHER ==
[2021-11-18] MEDS ORDERED: Sodium Chloride 0.9% 10 ML Syringe FLUSH PRN (22:24)
[2021-11-18 23:02] LABS: ESTIMATED GFR 69 mL/min (>60)
[2021-11-18] MEDS ORDERED: Magnesium Sulfate/Water 2 GM in Premix Bag 1 BAG IV ONE (23:09)
== END 2021-11-19 02:16 | disposition home or self-care (01) ==
LOC: JD.ED 22:14
DX: R07.89 Other chest pain (principal); R00.2 Palpitations; I10 Essential (primary) hypertension; E78.00 Pure hypercholesterolemia, unspecified; E03.9 Hypothyroidism, unspecified; Z79.899 Other long term (current) drug therapy; Z88.2 Allergy status to sulfonamides
CPT/HCPCS: 36415; 71045; 80053; 83735; 83880; 84484; 85025; 85379; 85610; 93005; 93246; 96365; 96366; 99285; J3475; J3490; 93010; 99284

== ENCOUNTER 2022-01-20 09:50 | Emergency (ER) | payer MEDICARE, OTHER ==
[2022-01-20] MEDS ORDERED: Metoclopramide 10 MG/2 ML SDV IVPUSH ONE (10:22)
[2022-01-20] MEDS ORDERED: HYDROmorphone 0.5 MG/0.5 ML Syringe IVPUSH ONE (10:22)
[2022-01-20] MEDS ORDERED: diphenhydrAMINE 50 MG/ML SDV IVPUSH ONE (10:23)
[2022-01-20] MEDS ORDERED: Ketorolac 30 MG/ML SDV IVPUSH SCH (10:30)
[2022-01-20] MEDS ORDERED: Dextrose 5%-0.9% NaCl 1,000 ML IV SCH (10:30)
== END 2022-01-20 12:20 | disposition home or self-care (01) ==
LOC: JD.ED 09:50
DX: N13.2 Hydronephrosis with renal and ureteral calculous obstruction (principal); E78.00 Pure hypercholesterolemia, unspecified; I10 Essential (primary) hypertension; K21.9 Gastro-esophageal reflux disease without esophagitis; E03.9 Hypothyroidism, unspecified; Z86.16 Personal history of COVID-19; Z88.5 Allergy status to narcotic agent; Z88.2 Allergy status to sulfonamides; Z79.899 Other long term (current) drug therapy
CPT/HCPCS: 74176; 81001; 96361; 96374; 96375; 99284; J1170; J1200; J1885; J2765; J7042

== ENCOUNTER 2022-07-12 20:13 | Inpatient (IN) | payer OTHER ==
[2022-07-12] MEDS ORDERED: Sodium Chloride 0.9% 1,000 ML IV ONE (20:40)
[2022-07-12] MEDS ORDERED: Ondansetron 4 MG/2 ML SDV IVPUSH ONE ×2 (20:40→22:04)
[2022-07-12 20:48] LABS: APPEARANCE,URINE CLEAR (Clear); BILIRUBIN,URINE 1+ (Negative); COLOR,URINE YELLOW (Yellow); GLUCOSE,URINE NEGATIVE (Negative); KETONES,URINE 4+ (Negative); LEUKOCYTE ESTERASE,URINE 1+ (Negative); NITRITE,URINE NEGATIVE (Negative); OCCULT BLOOD,URINE TRACE-INTACT (Negative); PROTEIN,URINE 1+ (Negative); UROBILINOGEN,URINE 0.2 (0.2-1.0)
[2022-07-12 20:57] LABS: HEMATOCRIT 40.7 % (34.1-44.9); HEMOGLOBIN 13.9 gm/dl (11.2-15.7); MEAN CORPUSCULAR HEMOGLOBIN 28.4 pg (25.6-32.2); MEAN CORPUSCULAR HGB CONC 34.2 g/dl (32.2-35.5); MEAN CORPUSCULAR VOLUME 83.1 fl (79.4-94.8); MEAN PLATELET VOLUME 10.5 fl (9.4-12.3); PLATELET COUNT,PLT 244 K/mm3 (182-369); WHITE BLOOD CELL COUNT,WBC 8.82 K/mm3 (3.98-10.04)
[2022-07-12 21:06] LABS: BACTERIA,URINE MODERATE /hpf (FEW); MUCUS,URINE FEW /hpf (FEW); WBC,URINE 30-40 /hpf (0-5)
[2022-07-12 21:10] LABS: BAND PERCENT MAN 0 % (0-10); BASOPHILS PERCENT MAN 0 (0.1-1.2); EOSINOPHILS PERCENT MAN 0 % (0.7-5.8); LYMPHOCYTES % ATYPICAL MANUAL 0 %; LYMPHOCYTES PERCENT MAN 13 % (20-40); MONOCYTES PERCENT MAN 2 % (2-10); PLATELET COUNT ESTIMATE ADEQUATE
[2022-07-12 21:33] LABS: A/G RATIO 0.9 (1-2); ALBUMIN 3.6 g/dl (3.4-5.0); ANION GAP 19.6 (5-15); BILIRUBIN TOTAL 0.6 mg/dL (0.2-1.0); BUN/CREATININE RATIO 16.3 (14-18); C-REACTIVE PROTEIN 17.7 mg/dL (<1.0); CREATININE 0.8 mg/dL (0.55-1.02); EST CRCL DRUG DOSING (CG) 85.81 mL/min; MAGNESIUM 1.7 mg/dL (1.8-2.4); POTASSIUM,K 3.6 mEq/L (3.5-5.1); PROTEIN TOTAL,TP 7.5 g/dl (6.4-8.2)
[2022-07-12 21:40] LABS: CALCIUM 9.5 mg/dL (8.5-10.1)
[2022-07-12] MEDS ORDERED: Iopamidol 612 MG/ML 100 ML Bottle IVPUSH ONE (21:44)
[2022-07-12] MEDS ORDERED: Levofloxacin/Dextrose 5%-Water 750 MG in Premix Bag 1 BAG IV STA (22:04)
[2022-07-12] MEDS ORDERED: Metoclopramide 10 MG/2 ML SDV IVPUSH STA (23:04)
[2022-07-13] MEDS ORDERED: Sodium Chloride 0.9% 1,000 ML IV SCH (07:00)
[2022-07-13] MEDS ORDERED: HYDROmorphone 1 MG/ML Syringe IVPUSH PRN (10:11)
[2022-07-13] MEDS ORDERED: Ondansetron 4 MG/2 ML SDV IVPUSH PRN (10:11)
[2022-07-13] MEDS ORDERED: HYDROmorphone 1 MG/ML Syringe ONE (10:15)
[2022-07-13] MEDS ORDERED: Metoclopramide 10 MG/2 ML SDV IVPUSH PRN (10:23)
[2022-07-13] MEDS ORDERED: Promethazine 12.5 MG in Sodium Chloride 0.9% 50 ML IV PRN (11:13)
[2022-07-13] MEDS ORDERED: Piperacillin/Tazobactam 4.5 GM in Sodium Chloride 0.9% 100 ML IV ONE (11:30)
[2022-07-13] MEDS: Scopolamine 1.5 MG Transdermal Patch TRDERM PRN (12:04)
[2022-07-13] MEDS ORDERED: HYDROmorphone 0.5 MG/0.5 ML Syringe IVPUSH PRN (13:15)
[2022-07-13] MEDS ORDERED: Acetaminophen 325 MG Tab PO PRN (13:15)
[2022-07-13] MEDS ORDERED: Acetaminophen/oxyCODONE 325-5 MG Tab PO PRN (13:15)
[2022-07-13] MEDS ORDERED: hydrALAZINE 20 MG/ML SDV IVPUSH PRN (13:15)
[2022-07-13] MEDS: Dextrose 5%-0.45% NaCl 1,000 ML IV SCH (14:25)
[2022-07-13] MEDS: Heparin Sodium 5,000 Units/ML Vial SUBCUT SCH ×2 (14:26→21:47)
[2022-07-13] MEDS: Promethazine 12.5 MG in Sodium Chloride 0.9% 50 ML IV SCH ×2 (17:14→23:56)
[2022-07-13] MEDS: Piperacillin/Tazobactam 4.5 GM in Sodium Chloride 0.9% 100 ML IV SCH (18:01)
[2022-07-14] MEDS: Piperacillin/Tazobactam 4.5 GM in Sodium Chloride 0.9% 100 ML IV SCH ×3 (01:52→18:15)
[2022-07-14] MEDS: Heparin Sodium 5,000 Units/ML Vial SUBCUT SCH ×3 (05:55→22:05)
[2022-07-14] MEDS: Promethazine 12.5 MG in Sodium Chloride 0.9% 50 ML IV SCH ×4 (05:55→22:13)
[2022-07-14] MEDS: Dextrose 5%-0.45% NaCl 1,000 ML IV SCH ×2 (05:56→22:04)
[2022-07-14 06:01] LABS: BASOPHILS ABSOLUTE AUTO 0.02 K/mm3 (0.01-0.08); BASOPHILS PERCENT AUTO 0.3 % (0.1-1.2); EOSINOPHILS ABSOLUTE AUTO 0.05 K/mm3 (0.04-0.36); EOSINOPHILS PERCENT AUTO 0.8 (0.7-5.8); HEMATOCRIT 34.2 % (34.1-44.9); IMMATURE GRAN ABSOLUTE AUTO 0.01 K/mm3 (0.00-0.10); IMMATURE GRAN PERCENT AUTO 0.2 % (<=1.0); LYMPHOCYTES ABSOLUTE AUTO 3.09 K/mm3 (1.18-3.74); LYMPHOCYTES PERCENT AUTO 46.9 % (19.3-51.7); MEAN CORPUSCULAR HEMOGLOBIN 27.9 pg (25.6-32.2); MEAN CORPUSCULAR HGB CONC 33.3 g/dl (32.2-35.5); MEAN CORPUSCULAR VOLUME 83.8 fl (79.4-94.8); MEAN PLATELET VOLUME 10.4 fl (9.4-12.3); MONOCYTES ABSOLUTE AUTO 0.57 K/mm3 (0.24-0.36); MONOCYTES PERCENT AUTO 8.6 % (4.7-12.5); NEUTROPHILS ABSOLUTE AUTO 2.85 K/mm3 (1.56-6.13); NEUTROPHILS PERCENT AUTO 43.2 % (34.0-71.1); PLATELET COUNT,PLT 247 K/mm3 (182-369); RED BLOOD CELL COUNT 4.08 M/mm3 (3.98-5.22); WHITE BLOOD CELL COUNT,WBC 6.59 K/mm3 (3.98-10.04)
[2022-07-14 06:11] LABS: HEMOGLOBIN 11.4 gm/dl (11.2-15.7)
[2022-07-14 06:12] LABS: ANION GAP 11.4 (5-15); BUN/CREATININE RATIO 8.9 (14-18); CREATININE 0.9 mg/dL (0.55-1.02); EST CRCL DRUG DOSING (CG) 75.44 mL/min; POTASSIUM,K 3.4 mEq/L (3.5-5.1)
[2022-07-14] MEDS: Thyroid 60 MG Tab PO SCH (09:09)
[2022-07-14] MEDS: Losartan 25 MG Tab PO SCH (09:10)
[2022-07-14] MEDS: Potassium Chloride 20 MEQ Tab.ER PO SCH (09:12)
[2022-07-14] MEDS: Ferrous Sulfate 324 MG Tab.EC PO SCH (09:12)
[2022-07-14] MEDS: buPROPion 150 MG Tab.ER PO SCH (09:13)
[2022-07-14] MEDS: Multivitamin Tab PO SCH (09:13)
[2022-07-14] MEDS: Vitamin B Complex With Vitamin C Cap PO SCH (09:13)
[2022-07-15] MEDS: Piperacillin/Tazobactam 4.5 GM in Sodium Chloride 0.9% 100 ML IV SCH ×3 (01:58→20:42)
[2022-07-15] MEDS: Promethazine 12.5 MG in Sodium Chloride 0.9% 50 ML IV SCH (06:02)
[2022-07-15] MEDS: Heparin Sodium 5,000 Units/ML Vial SUBCUT SCH ×3 (06:03→23:04)
[2022-07-15 06:28] LABS: BASOPHILS ABSOLUTE AUTO 0.02 K/mm3 (0.01-0.08); BASOPHILS PERCENT AUTO 0.3 % (0.1-1.2); EOSINOPHILS ABSOLUTE AUTO 0.13 K/mm3 (0.04-0.36); EOSINOPHILS PERCENT AUTO 2.3 (0.7-5.8); HEMATOCRIT 34.8 % (34.1-44.9); HEMOGLOBIN 11.3 gm/dl (11.2-15.7); IMMATURE GRAN ABSOLUTE AUTO 0.01 K/mm3 (0.00-0.10); IMMATURE GRAN PERCENT AUTO 0.2 % (<=1.0); LYMPHOCYTES ABSOLUTE AUTO 2.84 K/mm3 (1.18-3.74); LYMPHOCYTES PERCENT AUTO 49.6 % (19.3-51.7); MEAN CORPUSCULAR HEMOGLOBIN 27.7 pg (25.6-32.2); MEAN CORPUSCULAR HGB CONC 32.5 g/dl (32.2-35.5); MEAN CORPUSCULAR VOLUME 85.3 fl (79.4-94.8); MEAN PLATELET VOLUME 10.2 fl (9.4-12.3); MONOCYTES ABSOLUTE AUTO 0.43 K/mm3 (0.24-0.36); MONOCYTES PERCENT AUTO 7.5 % (4.7-12.5); NEUTROPHILS PERCENT AUTO 40.1 % (34.0-71.1); PLATELET COUNT,PLT 250 K/mm3 (182-369); RED BLOOD CELL COUNT 4.08 M/mm3 (3.98-5.22); WHITE BLOOD CELL COUNT,WBC 5.73 K/mm3 (3.98-10.04)
[2022-07-15 06:47] LABS: ANION GAP 11.4 (5-15); BUN/CREATININE RATIO 3.6 (14-18); CALCIUM 8.7 mg/dL (8.5-10.1); CREATININE 1.1 mg/dL (0.55-1.02); EST CRCL DRUG DOSING (CG) 61.72 mL/min; POTASSIUM,K 3.4 mEq/L (3.5-5.1)
[2022-07-15] MEDS: Thyroid 60 MG Tab PO SCH (08:44)
[2022-07-15] MEDS: buPROPion 150 MG Tab.ER PO SCH (08:44)
[2022-07-15] MEDS: Vitamin B Complex With Vitamin C Cap PO SCH (08:45)
[2022-07-15] MEDS: Multivitamin Tab PO SCH (08:45)
[2022-07-15] MEDS: Losartan 25 MG Tab PO SCH (08:45)
[2022-07-15] MEDS: Ferrous Sulfate 324 MG Tab.EC PO SCH (08:46)
[2022-07-15] MEDS: Potassium Chloride 20 MEQ Tab.ER PO SCH (08:47)
[2022-07-15] MEDS ORDERED: Promethazine 12.5 MG in Sodium Chloride 0.9% 50 ML IV PRN ×2 (12:17→12:47)
[2022-07-15] MEDS: Dextrose 5%-0.45% NaCl 1,000 ML IV SCH (12:27)
[2022-07-16] MEDS: Dextrose 5%-0.45% NaCl 1,000 ML IV SCH (02:06)
[2022-07-16] MEDS ORDERED: Piperacillin/Tazobactam 4.5 GM in Sodium Chloride 0.9% 100 ML IV SCH (04:00)
[2022-07-16] MEDS: Heparin Sodium 5,000 Units/ML Vial SUBCUT SCH (08:14)
[2022-07-16 08:45] LABS: BASOPHILS ABSOLUTE AUTO 0.05 K/mm3 (0.01-0.08); BASOPHILS PERCENT AUTO 0.9 % (0.1-1.2); EOSINOPHILS PERCENT AUTO 3.6 (0.7-5.8); HEMATOCRIT 37.4 % (34.1-44.9); HEMOGLOBIN 12.4 gm/dl (11.2-15.7); LYMPHOCYTES ABSOLUTE AUTO 2.22 K/mm3 (1.18-3.74); LYMPHOCYTES PERCENT AUTO 40.1 % (19.3-51.7); MEAN CORPUSCULAR HEMOGLOBIN 28.1 pg (25.6-32.2); MEAN CORPUSCULAR HGB CONC 33.2 g/dl (32.2-35.5); MEAN CORPUSCULAR VOLUME 84.8 fl (79.4-94.8); MEAN PLATELET VOLUME 10.1 fl (9.4-12.3); MONOCYTES ABSOLUTE AUTO 0.42 K/mm3 (0.24-0.36); MONOCYTES PERCENT AUTO 7.6 % (4.7-12.5); NEUTROPHILS ABSOLUTE AUTO 2.64 K/mm3 (1.56-6.13); NEUTROPHILS PERCENT AUTO 47.8 % (34.0-71.1); PLATELET COUNT,PLT 287 K/mm3 (182-369); RED BLOOD CELL COUNT 4.41 M/mm3 (3.98-5.22); WHITE BLOOD CELL COUNT,WBC 5.53 K/mm3 (3.98-10.04)
[2022-07-16] MEDS: Thyroid 60 MG Tab PO SCH (09:03)
[2022-07-16] MEDS: buPROPion 150 MG Tab.ER PO SCH (09:04)
[2022-07-16] MEDS: Vitamin B Complex With Vitamin C Cap PO SCH (09:04)
[2022-07-16] MEDS: Potassium Chloride 20 MEQ Tab.ER PO SCH (09:05)
[2022-07-16] MEDS: Ferrous Sulfate 324 MG Tab.EC PO SCH (09:08)
[2022-07-16] MEDS: Multivitamin Tab PO SCH (09:08)
[2022-07-16] MEDS: Losartan 25 MG Tab PO SCH (09:09)
[2022-07-16 09:37] LABS: ANION GAP 14.5 (5-15); BUN/CREATININE RATIO 2.7 (14-18); C-REACTIVE PROTEIN 1.6 mg/dL (<1.0); CALCIUM 9.1 mg/dL (8.5-10.1); CREATININE 1.1 mg/dL (0.55-1.02); EST CRCL DRUG DOSING (CG) 61.72 mL/min; POTASSIUM,K 3.5 mEq/L (3.5-5.1)
[2022-07-16] MEDS: Scopolamine 1.5 MG Transdermal Patch TRDERM PRN (10:40)
[2022-07-16 12:22] LABS: SLIDE REVIEW NORMAL SMEAR
[2022-07-16] MEDS ORDERED: Saccharomyces Boulardii (Probiotic) 250 MG Cap PO SCH (21:00)
== END 2022-07-16 11:15 | disposition home or self-care (01) | DRG 690 ==
LOC: JD.ED 20:13 → JD.OB 07-13 10:11
PROVIDERS: ADMIT Internal Medicine; ATTEND Internal Medicine
DX: N10 Acute pyelonephritis (principal); N13.6 Pyonephrosis; N17.9 Acute kidney failure, unspecified; N14.2 Nephropathy induced by unspecified drug, medicament or biological substance; I10 Essential (primary) hypertension; E78.5 Hyperlipidemia, unspecified; E03.9 Hypothyroidism, unspecified; K21.9 Gastro-esophageal reflux disease without esophagitis; F41.9 Anxiety disorder, unspecified; F32.A Depression, unspecified; K44.9 Diaphragmatic hernia without obstruction or gangrene; Z88.5 Allergy status to narcotic agent; Z88.2 Allergy status to sulfonamides; Z90.3 Acquired absence of stomach [part of]; Z98.890 Other specified postprocedural states; Z90.710 Acquired absence of both cervix and uterus; Z90.49 Acquired absence of other specified parts of digestive tract; Z56.0 Unemployment, unspecified
CPT/HCPCS: 36415; 74177; 74177-26; 80048; 80053; 81001; 83735; 85007; 85025; 85027; 86140; 87040; 87086; 96361; 96365; 96375; 96376; 99285; 99285-25; A9270-GY; J1644; J1956; J2405; J2543; J2550; J2765; J3490; J7030; J7042; Q9967

== ENCOUNTER 2023-02-09 11:24 | Emergency (ER) | payer OTHER ==
[2023-02-09 12:40] LABS: BASOPHILS PERCENT AUTO 0.4 % (0.0-1.0); EOSINOPHILS ABSOLUTE AUTO 0.1 K/mm3 (0.0-0.4); EOSINOPHILS PERCENT AUTO 1.1 % (0.0-6.0); HEMATOCRIT 42.1 % (37.0-47.0); HEMOGLOBIN 14.6 gm/dl (12.0-16.0); LYMPHOCYTES ABSOLUTE AUTO 1.8 K/mm3 (1.0-4.8); LYMPHOCYTES PERCENT AUTO 32.7 % (24.0-44.0); MEAN CORPUSCULAR HEMOGLOBIN 30.7 pg (28.0-32.0); MEAN CORPUSCULAR HGB CONC 34.7 g/dl (32.0-36.0); MEAN CORPUSCULAR VOLUME 88.6 fl (83.0-99.0); MEAN PLATELET VOLUME 10.6 fl (9.4-12.3); MONOCYTES ABSOLUTE AUTO 0.3 K/mm3 (0.0-0.8); MONOCYTES PERCENT AUTO 5.3 % (0.0-8.0); NEUTROPHILS ABSOLUTE AUTO 3.3 K/mm3 (1.8-7.7); NEUTROPHILS PERCENT AUTO 60.5 % (41.0-71.0); PLATELET COUNT,PLT 219 K/mm3 (150-400); RED BLOOD CELL COUNT 4.75 M/mm3 (4.10-5.30); WHITE BLOOD CELL COUNT,WBC 5.51 K/mm3 (3.9-11.3)
[2023-02-09 13:01] LABS: APPEARANCE,URINE CLEAR (Clear); BILIRUBIN,URINE NEGATIVE (Negative); COLOR,URINE DARK YELLOW (Yellow); GLUCOSE,URINE NEGATIVE (Negative); KETONES,URINE TRACE (Negative); LEUKOCYTE ESTERASE,URINE NEGATIVE (Negative); NITRITE,URINE NEGATIVE (Negative); OCCULT BLOOD,URINE TRACE-INTACT (Negative); PROTEIN,URINE 1+ (Negative); UROBILINOGEN,URINE 0.2 (0.2-1.0)
[2023-02-09 13:06] LABS: ALBUMIN 3.8 g/dl (3.4-5.0); ANION GAP 14.8 (5-15); BILIRUBIN TOTAL 0.6 mg/dL (0.2-1.0); CALCIUM 9.3 mg/dL (8.5-10.1); CREATININE 0.9 mg/dL (0.55-1.02); EST CRCL DRUG DOSING (CG) 74.43 mL/min; POTASSIUM,K 3.8 mEq/L (3.5-5.1); PROTEIN TOTAL,TP 7.5 g/dl (6.4-8.2)
[2023-02-09 13:10] LABS: BACTERIA,URINE MODERATE /hpf (FEW); MUCUS,URINE FEW /hpf (FEW); RBC,URINE 0-5 /hpf (0-5)
== END 2023-02-09 14:09 | disposition home or self-care (01) ==
LOC: JD.ED 11:24
DX: N13.2 Hydronephrosis with renal and ureteral calculous obstruction (principal); I10 Essential (primary) hypertension; E78.00 Pure hypercholesterolemia, unspecified; K21.9 Gastro-esophageal reflux disease without esophagitis; E03.9 Hypothyroidism, unspecified; Z86.16 Personal history of COVID-19; Z90.710 Acquired absence of both cervix and uterus; Z79.899 Other long term (current) drug therapy; Z88.5 Allergy status to narcotic agent; Z88.2 Allergy status to sulfonamides
CPT/HCPCS: 36415; 74176; 74176-26; 80053; 81001; 85025; 99283; 99284

== ENCOUNTER 2023-02-23 15:55 | Emergency (ER) | payer OTHER ==
[2023-02-23] MEDS ORDERED: Sodium Chloride 0.9% 10 ML Syringe FLUSH PRN (16:23)
[2023-02-23] MEDS ORDERED: HYDROmorphone 0.5 MG/0.5 ML Syringe IVPUSH ONE (16:23)
[2023-02-23] MEDS ORDERED: Ondansetron 4 MG/2 ML SDV IVPUSH ONE (16:23)
[2023-02-23] MEDS ORDERED: Sodium Chloride 0.9% 1,000 ML IV SCH (16:30)
[2023-02-23 16:43] LABS: BASOPHILS PERCENT AUTO 0.1 % (0.0-1.0); HEMATOCRIT 43.7 % (37.0-47.0); HEMOGLOBIN 14.7 gm/dl (12.0-16.0); IMMATURE GRAN ABSOLUTE AUTO 0.02 K/mm3 (0.00-0.05); IMMATURE GRAN PERCENT AUTO 0.2 % (0.0-0.4); LYMPHOCYTES ABSOLUTE AUTO 0.6 K/mm3 (1.0-4.8); MEAN CORPUSCULAR HEMOGLOBIN 30.2 pg (28.0-32.0); MEAN CORPUSCULAR HGB CONC 33.6 g/dl (32.0-36.0); MEAN CORPUSCULAR VOLUME 89.7 fl (83.0-99.0); MONOCYTES ABSOLUTE AUTO 0.1 K/mm3 (0.0-0.8); MONOCYTES PERCENT AUTO 0.7 % (0.0-8.0); NEUTROPHILS ABSOLUTE AUTO 7.3 K/mm3 (1.8-7.7); PLATELET COUNT,PLT 235 K/mm3 (150-400); RED BLOOD CELL COUNT 4.87 M/mm3 (4.10-5.30); WHITE BLOOD CELL COUNT,WBC 8.03 K/mm3 (3.9-11.3)
[2023-02-23 17:03] LABS: ALBUMIN 3.9 g/dl (3.4-5.0); BILIRUBIN TOTAL 0.5 mg/dL (0.2-1.0); CALCIUM 9.8 mg/dL (8.5-10.1); EST CRCL DRUG DOSING (CG) 66.7 mL/min; PROTEIN TOTAL,TP 7.7 g/dl (6.4-8.2)
[2023-02-23] MEDS ORDERED: Ketorolac 30 MG/ML SDV IVPUSH ONE (17:13)
[2023-02-23] MEDS ORDERED: Metoclopramide 10 MG/2 ML SDV IVPUSH ONE (18:54)
[2023-02-23] MEDS ORDERED: Morphine 4 MG/ML Syringe IVPUSH ONE (18:54)
[2023-02-23 18:56] LABS: APPEARANCE,URINE CLEAR (Clear); BILIRUBIN,URINE NEGATIVE (Negative); COLOR,URINE YELLOW (Yellow); GLUCOSE,URINE NEGATIVE (Negative); KETONES,URINE TRACE (Negative); LEUKOCYTE ESTERASE,URINE NEGATIVE (Negative); NITRITE,URINE NEGATIVE (Negative); OCCULT BLOOD,URINE 2+ (Negative); PROTEIN,URINE 1+ (Negative); UROBILINOGEN,URINE 0.2 (0.2-1.0)
[2023-02-23 19:31] LABS: BACTERIA,URINE MODERATE /hpf (FEW); MUCUS,URINE FEW /hpf (FEW); RBC,URINE >100 /hpf (0-5); SQUAMOUS EPITHELIAL CELLS,UR 0-5 /hpf (0-5); WBC,URINE 0-5 /hpf (0-5)
== END 2023-02-23 19:50 | disposition home or self-care (01) ==
LOC: JD.ED 15:55
DX: N13.2 Hydronephrosis with renal and ureteral calculous obstruction (principal); R31.9 Hematuria, unspecified; I10 Essential (primary) hypertension; E03.9 Hypothyroidism, unspecified; Z86.16 Personal history of COVID-19; Z88.5 Allergy status to narcotic agent; Z88.2 Allergy status to sulfonamides; Z79.899 Other long term (current) drug therapy
CPT/HCPCS: 36415; 74176; 80053; 81001; 85025; 96374; 96375; 99284; J1170; J1885; J2270; J2405; J2765; J3490; J7030

== ENCOUNTER 2024-09-12 15:39 | Emergency (ER) | payer BC ==
[2024-09-12] MEDS ORDERED: Sodium Chloride 0.9% 10 ML Syringe FLUSH PRN (16:09)
[2024-09-12 16:45] LABS: APPEARANCE,URINE CLEAR (Clear); GLUCOSE,URINE NEGATIVE (Negative); OCCULT BLOOD,URINE 1+ (Negative)
[2024-09-12 17:04] LABS: A/G RATIO 1.2 (1-2); ALANINE AMINOTRANSFERASE,ALT 46 U/L (14-59); ASPARTATE AMNIOTRANSFERASE,AST 25 U/L (15-37); BILIRUBIN TOTAL 0.4 mg/dL (0.2-1.0); BLOOD UREA NITROGEN,BUN 16 mg/dL (7-18); CARBON DIOXIDE,CO2 28 mEq/L (21-32); CHLORIDE,CL 105 mEq/L (98-107); CREATININE 1.0 mg/dL (0.55-1.02); EST CRCL DRUG DOSING (CG) 60.32 mL/min; ESTIMATED GFR 68 mL/min (>60); GLUCOSE RANDOM 77 mg/dL (70-99); POTASSIUM,K 4.4 mEq/L (3.5-5.1); PROTEIN TOTAL,TP 7.1 g/dl (6.4-8.2); SODIUM,NA 141 mEq/L (136-145)
[2024-09-12 17:12] LABS: SQUAMOUS EPITHELIAL CELLS,UR 0-5 /hpf (0-5)
[2024-09-12 17:31] LABS: BASOPHILS ABSOLUTE AUTO 0.0 K/mm3 (0.0-0.2); BASOPHILS PERCENT AUTO 0.4 % (0.0-1.0); EOSINOPHILS ABSOLUTE AUTO 0.2 K/mm3 (0.0-0.4); EOSINOPHILS PERCENT AUTO 3.0 % (0.0-6.0); IMMATURE GRAN ABSOLUTE AUTO 0.01 K/mm3 (0.00-0.05); IMMATURE GRAN PERCENT AUTO 0.1 % (0.0-0.4); LYMPHOCYTES ABSOLUTE AUTO 2.4 K/mm3 (1.0-4.8); LYMPHOCYTES PERCENT AUTO 35.8 % (24.0-44.0); MEAN PLATELET VOLUME 11.0 fl (9.4-12.3); MONOCYTES ABSOLUTE AUTO 0.4 K/mm3 (0.0-0.8); MONOCYTES PERCENT AUTO 6.6 % (0.0-8.0); NEUTROPHILS ABSOLUTE AUTO 3.6 K/mm3 (1.8-7.7); NEUTROPHILS PERCENT AUTO 54.1 % (41.0-71.0); NRBC ABSOLUTE 0.00 (0.00-0.02); NRBC PERCENT 0.0 % (0.0-0.2); PLATELET COUNT,PLT 188 K/mm3 (150-400); RED BLOOD CELL COUNT 4.62 M/mm3 (4.10-5.30); WHITE BLOOD CELL COUNT,WBC 6.70 K/mm3 (3.9-11.3)
== END 2024-09-12 17:57 | disposition home or self-care (01) ==
LOC: JD.ED 15:39
DX: N13.2 Hydronephrosis with renal and ureteral calculous obstruction (principal); E78.00 Pure hypercholesterolemia, unspecified; I10 Essential (primary) hypertension; K21.9 Gastro-esophageal reflux disease without esophagitis; E03.9 Hypothyroidism, unspecified; Z88.5 Allergy status to narcotic agent; Z88.2 Allergy status to sulfonamides; Z79.899 Other long term (current) drug therapy; Z86.16 Personal history of COVID-19
CPT/HCPCS: 36415; 74176; 74176-26; 80053; 81001; 85025; 86140; 99284